=== PATIENT | female | born 1980 | race Hispanic/Latino ===

== ENCOUNTER 2019-08-01 07:28 | Outpatient (CLI) | payer BC ==
--- NOTE | 2019-08-01 13:26 | ULT ---
LIMITED ABDOMINAL ULTRASOUND: 08/01/19 INDICATIONS: Patient complained of a palpable mass in the left upper quadrant region. Directed ultrasound to this area was performed. No sonographic abnormality identified in the area of palpable concern. The subcutaneous tissues and t he underlying abdominal wall musculature appears normal. Left upper quadrant structures such as splee n and pancreas are not imaged. The exam was limited to the area of palpable concern in the subcutaneo us region. IMPRESSION: Negative directed ultrasound in the area of palpable concern. POS: [facility]W
== END 2019-08-01 07:29 | disposition home or self-care (01) ==
LOC: BICULT 07:28
PROVIDERS: ATTEND Student in an Organized Health Care Education/Training Program
DX: M79.89 Other specified soft tissue disorders (principal)
CPT/HCPCS: 76705

== ENCOUNTER 2024-05-18 11:59 | Outpatient (CLI) | payer BC, OTHER | END 2024-05-18 12:00 | disposition home or self-care (01) | LOC: BICMAMMO 11:59 | PROVIDERS: ATTEND Nurse Practitioner Family | DX: Z12.31 Encounter for screening mammogram for malignant neoplasm of breast (principal) | CPT/HCPCS: 77063; 77067 ==